=== PATIENT | female | born 1960 | race Caucasian/White ===

== ENCOUNTER 2017-03-08 07:38 | Emergency (ER) | payer OTHER ==
[~2017-03-08] VITALS: Ht 165.1 cm; Wt 101.1 kg
[~2017-03-08 07:38] MED LIST: ACETAMINOPHN-T1 EACH PO; AMBIEN10 M1 PO; AZITHROMYCIN250 MG; BACTRIM,SEPT1 TABLET PO; BREO ELLIPTA I1 EACH IH; CARAFATE100 MG/ML PO; DEXILANT60 MG PO; LEVOTHYROXINE137 MCG; LEVOTHYROXINE150 MCG PO; LIPITOR40 MG; NAPROSYN500 MG PO; PERCOCET 5/31 TABLET PO; PREDNISONE20 MG PO; SPIRIVA1 INHALATI IH; SYNTHROID125 MCG PO; ULTRAM50 MG PO; VENTOLIN HFA18 GM IH; ZANTAC150 MG PO; ZOFRAN4 MG PO; ZOLPIDEM TARTRA10 MG
[2017-03-08 08:53] LABS: EOSINOPHIL (%) 2.5 % (0-5); EOSINOPHIL COUNT 0.1 K/uL (0-0.3); IMMATURE GRANULOCYTE (%) 0.5 % (0.0-0.7); INSTRUMENT ABS NEUTROPHIL CT 2.9 K/uL; LYMPHOCYTE COUNT 2.1 K/uL (1.0-2.8); MCH 20.2 PG (29.0-34.0); MCHC 30.3 G/DL (30.0-36.0); MCV 66.7 FL (83-99); MONOCYTE (%) 7.7 % (3-12); MONOCYTE COUNT 0.4 K/uL (0-0.8); NEUTROPHIL (%) 51.2 % (45-76); NEUTROPHIL COUNT 2.9 K/uL (1.8-6.4); PLATELET COUNT 254 K/uL (156-360); RBC DIS.WIDTH-SD 34.5 % (39-53); WHITE BLOOD COUNT 5.6 K/uL (4.1-10.2)
[2017-03-08 08:59] LABS: CHLORIDE 107 mEq/L (99-109); SODIUM 140 mEq/L (136-147)
[2017-03-08 09:00] LABS: GLUCOSE 108 mg/dL (70-99)
[2017-03-08 09:01] LABS: D-DIMER ELISA 0.23 mg/L FEU (< 0.57); PTT 28.9 (25-32)
[2017-03-08 09:02] LABS: ANION GAP 9 MEQ/L (2-14)
[2017-03-08 09:04] LABS: GFR ESTIMATE (CALCULATED) > 59 mL/min/
[2017-03-08 09:05] LABS: UREA NITROGEN (BUN) 9 mg/dL (9-23)
[2017-03-08 09:09] LABS: TROP-I INTERPRETATION NEGATIVE; TROPONIN-I < 0.01 ng/mL (0.0-0.30)
[2017-03-08 11:11] LABS: TROP-I INTERPRETATION NEGATIVE; TROPONIN-I < 0.01 ng/mL (0.0-0.30)
[2017-03-08] MEDS ORDERED: TYLENOL WITH C1 EACH PO (11:26)
[2017-03-08 12:02] VITALS: BP 105/67
== END 2017-03-08 12:03 | disposition home or self-care (01) ==
LOC: EME 07:38
PROVIDERS: Emergency Medicine
DX: R07.89 Other chest pain (principal); M54.89 Other dorsalgia; J44.9 Chronic obstructive pulmonary disease, unspecified; Z87.891 Personal history of nicotine dependence
CPT/HCPCS: 71010; 80048; 84484; 85025; 85379; 85610; 85730; 93005; 99281; 99284; J1885

== ENCOUNTER 2017-11-05 18:18 | Emergency (ER) | payer OTHER ==
[~2017-11-05] VITALS: Ht 165.1 cm; Wt 103.8 kg
[~2017-11-05 18:18] MED LIST changes: +TYLENOL WITH C1 EACH PO
[2017-11-05] MEDS ORDERED: PREDNISONE20 MG PO (20:53)
[2017-11-05] MEDS ORDERED: VENTOLIN HFA18 GM IH (20:53)
[2017-11-05 21:05] VITALS: BP 134/75
== END 2017-11-05 21:07 | disposition home or self-care (01) ==
LOC: EME 18:18
DX: J20.8 Acute bronchitis due to other specified organisms (principal); J44.0 Chronic obstructive pulmonary disease with (acute) lower respiratory infection; J02.8 Acute pharyngitis due to other specified organisms; Z87.891 Personal history of nicotine dependence
CPT/HCPCS: 71046; 94640; 99281; 99284; J7512